=== PATIENT | female | born 1970 | race Caucasian/White ===

== ENCOUNTER 2017-04-18 12:08 | Emergency (ER) | payer OTHER ==
[2017-04-18 12:43] LABS: BILIRUBIN NEGATIVE (NEGATIVE); BLOOD TRACE-LYSED Ery/uL (NEGATIVE); CLARITY CLEAR (CLEAR); COLOR YELLOW (YELLOW); GLUCOSE (U) NORMAL (NORMAL); KETONE (U) NEGATIVE (NEGATIVE); LEUKOCYTES NEGATIVE Leu/uL (NEGATIVE); NITRITE NEGATIVE (NEGATIVE); PROTEIN NEGATIVE (NEGATIVE); SPECIFIC GRAVITY <=1.005 (1.001-1.030)
[2017-04-18 12:44] LABS: BASOPHIL 0.6 % (0-2); EOSINOPHIL 1.2 % (0-5); HCT 44.7 % (37.0-47.0); HGB 15.5 g/dl (12.5-16.0); LYMPHOCYTE 27.5 % (15-48); MCHC 34.7 g/dL (32.0-36.0); MCV 92.2 fL (78.0-100.0); MONOCYTE 5.9 % (0-12); NEUTROPHIL 64.8 % (41-80); PLT 410 K/uL (150-400); RBC 4.85 M/uL (4.20-5.40); RDW 12.7 % (11.5-14.0); WBC 7.8 K/uL (4.0-10.5)
[2017-04-18 12:56] LABS: URINARY RBC RARE
[2017-04-18 12:57] LABS: AMORPHOUS URATES CRYSTALS TRACE
[2017-04-18 13:00] LABS: ALBUMIN 4.8 g/dL (3.5-5.0); BILIRUBIN - TOTAL 0.5 mg/dL (0.1-1.0); CREATININE 0.6 mg/dL (0.5-1.0); GLOBULIN (CALCULATION) 3.4 g/dL (2.2-4.2); POTASSIUM 3.8 mmol/L (3.5-5.1); TOTAL PROTEIN 8.2 g/dL (6.4-8.3)
[2017-04-18 13:02] LABS: LACTIC ACID 0.9 mmol/L (0.5-2.2)
== END 2017-04-18 16:51 | disposition home or self-care (01) ==
LOC: FER 12:08
PROVIDERS: Internal Medicine
DX: K57.92 Diverticulitis of intestine, part unspecified, without perforation or abscess without bleeding (principal); I10 Essential (primary) hypertension; Z88.5 Allergy status to narcotic agent; Z91.012 Allergy to eggs
CPT/HCPCS: 36415; 80053; 81001; 82150; 83605; 83690; 85025; J1885; J2405

== ENCOUNTER 2020-12-12 09:19 | Emergency (ER) | payer OTHER ==
[~2020-12-12 09:19] MED LIST: ABILIFY5 MG PO; ALL DAY ALLERGY10 M2 PO; AMOX TR-K CLV1 EAC4 PO; ATARAX25 MG PO; B COMPLEX1 EACH PO; EFFEXOR XR150 MG PO; FLEXERIL10 MG PO; FLOMAX0.4 MG PO; K-DUR20 MEQ PO; LISINOPRIL 10MG10 MG PO; LOVAZA1 GM PO; MEDROL 4MG DOSEP4 MG PO; NORCO 5-325 TA1 EACH PO; ONDANSETRON ODT4 MG PO; PERCOCET 5-3251 EACH PO; PREDNISONE 20MG20 MG PO; PRILOSEC20 MG PO; PROAIR HFA8.5 GM INH; PROMETHEGA12.5 MG/SU PR; REMERON15 MG PO; STOOL SOFTENER100 M1 PO; SUBOXONE 12 MG1 EACH PO; VENLAFAXINE HC225 MG PO; VIBRAMYCIN100 MG PO; VITAMIN D35000 UNI2 PO; VOLTAREN-XR100 MG PO; ZANTAC150 MG PO
[2020-12-12 10:49] LABS: BASOPHIL 0.1 % (0-2); EOSINOPHIL 0 % (0-5); HCT 45.5 % (37.0-47.0); HGB 15.7 g/dl (12.5-16.0); LYMPHOCYTE 14.2 % (15-48); MCH 31.3 pg (25.0-31.0); MCHC 34.5 g/dL (32.0-36.0); MCV 90.6 fL (78.0-100.0); MONOCYTE 4.3 % (0-12); MPV 8.2 fL (6.0-9.5); NEUTROPHIL 81.2 % (41-80); NRBC 0; PLT 409 K/uL (150-400); RBC 5.02 M/uL (4.20-5.40); WBC 10.2 K/uL (4.0-10.5)
[2020-12-12 10:50] LABS: BILIRUBIN 1+ mg/dL (NEGATIVE); BLOOD 3+ Ery/uL (NEGATIVE); CLARITY CLEAR (CLEAR); COLOR YELLOW (YELLOW); GLUCOSE (U) NORMAL (NORMAL); LEUKOCYTES NEGATIVE Leu/uL (NEGATIVE); NITRITE NEGATIVE (NEGATIVE); PROTEIN 3+ mg/dL (NEGATIVE); SPECIFIC GRAVITY >=1.030 (1.001-1.030); UROBILINOGEN 0.2 mg/dL (0.2-1.0)
[2020-12-12 11:09] LABS: MUCOUS TRACE
[2020-12-12 11:10] LABS: AMORPHOUS URATES CRYSTALS TRACE; BACTERIA TRACE
[2020-12-12 11:11] LABS: ALBUMIN 4.7 g/dL (3.4-5.0); BILIRUBIN - TOTAL 0.6 mg/dL (0.2-1.0); BUN/CREAT RATIO (CALC) 28.6 RATIO; CREATININE 0.56 mg/dL (0.51-0.95); GLOBULIN (CALCULATION) 4.3 g/dL
[2020-12-12] MEDS ORDERED: K-DUR20 MEQ PO (15:03)
[2020-12-12] MEDS ORDERED: ONDANSETRON ODT4 MG SL (15:03)
[2020-12-12] MEDS ORDERED: PHENERGAN25 M1 PO (15:03)
[2020-12-12] MEDS ORDERED: BENTYL10 MG PO (15:03)
== END 2020-12-12 15:03 | disposition home or self-care (01) ==
LOC: FER 09:19
PROVIDERS: Emergency Medicine
DX: K52.9 Noninfective gastroenteritis and colitis, unspecified (principal); Z88.5 Allergy status to narcotic agent; Z20.822 Contact with and (suspected) exposure to COVID-19
CPT/HCPCS: 36415; 80053; 81001; 83690; 85025; J1200; J2405; J2550; J2765; J7030; Q9967; U0002

== ENCOUNTER 2021-04-09 14:31 | Emergency (ER) | payer OTHER ==
[~2021-04-09 14:31] MED LIST changes: +BENTYL10 MG PO; +ONDANSETRON ODT4 MG SL; +PHENERGAN25 M1 PO
[2021-04-09] MEDS ORDERED: MOTRIN600 MG PO (16:08)
== END 2021-04-09 16:24 | disposition home or self-care (01) ==
LOC: FER 14:31
DX: S22.32XA Fracture of one rib, left side, initial encounter for closed fracture (principal); F17.210 Nicotine dependence, cigarettes, uncomplicated; Z88.5 Allergy status to narcotic agent; W22.8XXA Striking against or struck by other objects, initial encounter; Y92.009 Unspecified place in unspecified non-institutional (private) residence as the place of occurrence of the external cause
CPT/HCPCS: 71101; J1885

== ENCOUNTER 2021-05-26 16:55 | Emergency (ER) | payer OTHER ==
[~2021-05-26 16:55] MED LIST changes: +MOTRIN600 MG PO
[2021-05-26 18:06] LABS: BILIRUBIN NEGATIVE (NEGATIVE); BLOOD NEGATIVE Ery/uL (NEGATIVE); CLARITY CLEAR (CLEAR); COLOR YELLOW (YELLOW); GLUCOSE (U) NORMAL (NORMAL); LEUKOCYTES NEGATIVE Leu/uL (NEGATIVE); NITRITE NEGATIVE (NEGATIVE); PROTEIN NEGATIVE (NEGATIVE); UROBILINOGEN 0.2 mg/dL (0.2-1.0)
[2021-05-26] MEDS ORDERED: DIFLUCAN 100MG100 MG PO (18:19)
== END 2021-05-26 18:40 | disposition home or self-care (01) ==
LOC: FER 16:55
PROVIDERS: Physician Assistant
DX: B37.9 Candidiasis, unspecified (principal); I10 Essential (primary) hypertension; F17.200 Nicotine dependence, unspecified, uncomplicated; Z90.710 Acquired absence of both cervix and uterus; Z98.890 Other specified postprocedural states; Z88.5 Allergy status to narcotic agent
CPT/HCPCS: 81003; 99284; J1885

== ENCOUNTER 2021-08-06 15:28 | Emergency (ER) | payer OTHER ==
[~2021-08-06 15:28] MED LIST changes: +DIFLUCAN 100MG100 MG PO
[2021-08-06] MEDS ORDERED: NAPROXEN500 MG PO (18:08)
[2021-08-06] MEDS ORDERED: BACLOFEN 10MG T10 MG PO (18:08)
== END 2021-08-06 18:22 | disposition home or self-care (01) ==
LOC: FER 15:28
DX: M54.5 Low back pain (principal); M54.2 Cervicalgia; M25.552 Pain in left hip; F17.210 Nicotine dependence, cigarettes, uncomplicated; Z88.6 Allergy status to analgesic agent; Z91.012 Allergy to eggs; Y92.009 Unspecified place in unspecified non-institutional (private) residence as the place of occurrence of the external cause; V43.52XA Car driver injured in collision with other type car in traffic accident, initial encounter
CPT/HCPCS: 70450; 72125; 72131; 73502; 96372; J1100; J1885